=== PATIENT | male | born 2000 | race African-American/Black ===

== ENCOUNTER 2021-09-20 12:45 | Emergency (ER) | payer MEDICAID ==
[~2021-09-20] VITALS: Ht 188 cm; Wt 85.0 kg
[2021-09-20] MEDS ORDERED: ACETAMINOPHEN WITH CODEINE 300/30MG TABLET PO ONE (13:30)
[2021-09-20 14:43] VITALS: BP 129/87
[2021-09-20] MEDS ORDERED: BACITRACIN ZINC OINT UDPKT TOP ONE (15:00)
[2021-09-20] MEDS ORDERED: TETANUS, DIPHTHERIA, PERTUSSIS VAC/PF 0.5ML (>10YR OLD) IM ONE (15:00)
== END 2021-09-20 15:47 | disposition home or self-care (01) ==
LOC: ER 12:45
DX: S61.211A Laceration without foreign body of left index finger without damage to nail, initial encounter (principal); W26.8XXA Contact with other sharp object(s), not elsewhere classified, initial encounter; Y93.89 Activity, other specified; Y92.9 Unspecified place or not applicable
CPT/HCPCS: 12001; 73130; 99283